=== PATIENT | female | born 2000 | race Caucasian/White ===

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

== ENCOUNTER 2024-12-28 08:32 | Emergency (ER) | payer OTHER, BC ==
[2024-12-28] MEDS ORDERED: Sodium Chloride 0.9% 20 ML SDV IV PRN (10:19)
[2024-12-28] MEDS ORDERED: Sodium Chloride 0.9% 10 ML Syringe FLUSH PRN (10:19)
[2024-12-28] MEDS ORDERED: Sodium Chloride 0.9% 2.5 ML Syringe FLUSH PRN (10:19)
[2024-12-28] MEDS ORDERED: Naloxone 0.4 MG/ML SDV IVPUSH PRN (10:41)
[2024-12-28] MEDS: Morphine 2 MG/ML SYRINGE IVPUSH ONE ×2 (10:53→12:17)
[2024-12-28] MEDS: Ondansetron 4 MG/2 ML SDV IVPUSH STA (10:53)
[2024-12-28 10:54] LABS: BASOPHILS PERCENT AUTO 0.6 % (0.0-1.0); EOSINOPHILS PERCENT AUTO 3.5 % (0.0-6.0); HEMATOCRIT 37.5 % (37.0-47.0); HEMOGLOBIN 12.7 g/dL (12.0-16.0); LYMPHOCYTES PERCENT AUTO 30.1 % (24.0-44.0); MEAN CORPUSCULAR HEMOGLOBIN 29.1 pg (28.0-32.0); MEAN CORPUSCULAR HGB CONC 33.9 g/dL (32.0-36.0); MEAN PLATELET VOLUME 9.2 fL (9.4-12.3); MONOCYTES PERCENT AUTO 7.2 % (0.0-8.0); NEUTROPHILS PERCENT AUTO 58.4 % (41.0-71.0); PLATELET COUNT,PLT 271 K/uL (150-400); RED BLOOD CELL COUNT 4.36 M/uL (4.10-5.30); WHITE BLOOD CELL COUNT,WBC 8.64 K/uL (3.9-11.3)
[2024-12-28 10:55] LABS: BASOPHILS ABSOLUTE AUTO 0.05 K/uL (0.00-0.20); IMMATURE GRAN ABSOLUTE AUTO 0.02 K/uL (0.00-0.05); IMMATURE GRAN PERCENT AUTO 0.2 % (0.0-0.4); MONOCYTES ABSOLUTE AUTO 0.62 K/uL (0.00-0.80); NEUTROPHILS ABSOLUTE AUTO 5.05 K/uL (1.80-7.70)
[2024-12-28 11:08] LABS: INR < 0.93 (0.86-1.11); PTT,PARTIAL THROMBOPLSTIN TIME 26.5 SEC (23.9-30.7)
[2024-12-28 11:10] LABS: CALCIUM 8.9 mg/dL (8.5-10.1); CARBON DIOXIDE,CO2 26.3 mmol/L (21.0-32.0); CREATININE 0.8 mg/dL (0.6-1.0); EST CRCL DRUG DOSING (CG) 111.27 mL/min; POTASSIUM,K 3.8 mmol/L (3.5-5.1)
[2024-12-28] MEDS: Diphtheria,Pertussis(Acell),Tetanus Vaccine 0.5 ML Syringe IM ONE (11:33)
[2024-12-28] MEDS: Amoxicillin/Clavulanate K 875-125 MG Tab PO ONE (12:31)
[2024-12-28 12:42] VITALS: BP 119/71; PULSE 63
== END 2024-12-28 12:42 | disposition home or self-care (01) ==
LOC: MW.ED 08:32
DX: S61.051A Open bite of right thumb without damage to nail, initial encounter (principal); Z23 Encounter for immunization; Z79.899 Other long term (current) drug therapy; W54.0XXA Bitten by dog, initial encounter; Y93.89 Activity, other specified
CPT/HCPCS: 36415; 73130; 80048; 84703; 85025; 85610; 85730; 90471; 90715; 96374; 96375; 96376; 99283; A9270; J2270; J2405